=== PATIENT | male | born 1965 | race Caucasian/White ===

== ENCOUNTER 2017-11-05 13:05 | Day surgery (SDC) | payer OTHER ==
[2017-11-05] MEDS ORDERED: HYDROmorphONE (0.2 MG/ML) 10ML SYG IV (16:30)
[2017-11-05] MEDS ORDERED: FENTAnyl 50 MCG/ML VIAL IV (16:30)
[2017-11-05] MEDS ORDERED: METOCLOPRAMIDE 10 MG INJ IV (16:30)
[2017-11-05] MEDS ORDERED: MEPERIDINE 25 MG INJ IV (16:30)
[2017-11-05] MEDS ORDERED: DIPHENHYDRAMINE 50 MG INJ IV (16:30)
[2017-11-05] MEDS ORDERED: FENTAnyl 50 MCG/ML VIAL (17:10)
[2017-11-05] MEDS: POLYMYXIN/BACITRACIN 1L IRRIG (17:24)
[2017-11-05] MEDS ORDERED: LIDOCAINE 100 MG SYRINGE (17:27)
[2017-11-05] MEDS ORDERED: SUCCINYLCHOLINE CHLORIDE 100 MG/5 ML SYG IV (17:27)
[2017-11-05] MEDS ORDERED: SUGAMMADEX SODIUM 200 MG/2 ML VIAL IV (17:27)
[2017-11-05] MEDS ORDERED: PROPOFOL 20 ML (17:27)
[2017-11-05] MEDS ORDERED: CEFAZOLIN 1 GM INJ (17:27)
[2017-11-05] MEDS ORDERED: ROCURONIUM 50 MG INJ (17:27)
[2017-11-05] MEDS: BUPIVACAINE 0.25% (MPF) 30 ML INJ (17:50)
[2017-11-05] MEDS: ONDANSETRON 4 MG INJ IV (18:06)
[2017-11-05] MEDS: FENTAnyl 50 MCG/ML VIAL IV (18:06)
[2017-11-05] MEDS: HYDROmorphONE (0.2 MG/ML) 10ML SYG IV (18:08)
== END 2017-11-05 19:59 | disposition home or self-care (01) ==
LOC: SDS 13:05
DX: T84.84XA Pain due to internal orthopedic prosthetic devices, implants and grafts, initial encounter (principal); E66.9 Obesity, unspecified; Z68.30 Body mass index [BMI] 30.0-30.9, adult; Y83.8 Other surgical procedures as the cause of abnormal reaction of the patient, or of later complication, without mention of misadventure at the time of the procedure
CPT/HCPCS: 20680; 73560; 88300